=== PATIENT | male | born 1990 | race Caucasian/White ===

== ENCOUNTER 2017-01-01 04:46 | Emergency (ER) | payer SELFPAY ==
[2017-01-01 05:08] VITALS: BP 141/86; PULSE 82; RESP 18; O2SAT 96
--- NOTE | 2017-01-01 05:38 | PD ---
HPI Chief Complaint: Psychiatric Symptoms Time Seen by Provider: 05:29 Travel History International Travel<30 days: No Contact w/Intl Traveler<30days: No History of Present Illness HPI Patient comes in under a Betancourt act from different ER facility with patient was seen and evaluated there. Patient had CT done of his face, head, neck, as well as laboratory work and the copies were sent and was all reviewed. Patient was diagnosed with facial contusion and Betancourt acted for suicidal ideations. Patient admits to suicidal ideation denies any current complaints. Patient states that the harm other people by selling drugs. Denies any medical concerns other than his facial contusions. Denies chest pain, shortness of breath, headache, or abdominal pain. PFSH Past Medical History Medical History: Denies Significant Hx Social History Alcohol Use: Yes Tobacco Use: Yes Substance Use: Yes Allergies-Medications (Allergen,Severity, Reaction): Coded Allergies: No Known Allergies (Unverified , 01/01/17) Reported Meds & Prescriptions Reported Meds & Active Scripts Active No Active Prescriptions or Reported Medications Review of Systems Except as stated in HPI: all other systems reviewed are Neg Physical Exam Narrative GENERAL: Well-developed, well nourished, in no acute distress, and non-ill appearing. SKIN: Warm and dry. Bilateral periorbital ecchymosis. HEAD: Atraumatic. Normocephalic. EYES: Pupils equal and round. EOMI. No scleral icterus. No injection or drainage. ENT: No nasal bleeding or discharge. Mucous membranes pink and moist. NECK: Trachea midline. Supple. No nuclear rigidity. CARDIOVASCULAR: Regular rate and rhythm. No murmur appreciated. RESPIRATORY: No accessory muscle use. No respiratory distress. Clear to auscultation. Breath sounds equal bilaterally. MUSCULOSKELETAL: No obvious deformities. No clubbing. No cyanosis. No edema. Full range of motion. NEUROLOGICAL: Awake and alert. No obvious cranial nerve deficits. Motor grossly within normal limits. Normal speech. PSYCHIATRIC: Insight and judgment abnormal. Data Data Last Documented VS Vital Signs Date Time Temp Pulse Resp B/P Pulse Ox O2 Delivery O2 Flow Rate FiO2 01/01/17 05:08 82 18 141/86 96 Room Air Orders Psych Screen (01/01/17 04:53) MDM Medical Decision Making Medical Screen Exam Complete: Yes Emergency Medical Condition: Yes Differential Diagnosis Homicidal, suicidal, facial contusions, substance abuse, other Narrative Course Patient was seen and examined. Labs and CAT scans reports were reviewed. Patient medically cleared for further treatment and evaluation by psych. Final disposition per psych. Diagnosis Primary Impression: Suicidal ideations Additional Impression: Facial contusion Qualified Code: S00.83XA - Facial contusion, initial encounter Scripts No Active Prescriptions or Reported Meds Condition: Amandeep Rodriguez Jan 01, 2017 05:38
== END 2017-01-01 06:04 ==
LOC: NEPJ 04:46
DX: S00.83XA Contusion of other part of head, initial encounter (principal); R45.851 Suicidal ideations; Z72.0 Tobacco use; X58.XXXA Exposure to other specified factors, initial encounter
CPT/HCPCS: 99285